=== PATIENT | female | born 1955 | race Two or more races ===

== ENCOUNTER 2023-04-06 15:51 | Emergency (ER) | payer OTHER ==
[~2023-04-06] VITALS: Ht 152.4 cm; Wt 81.6 kg
[~2023-04-06 15:51] MED LIST: ASA81 MG
[2023-04-06] MEDS ORDERED: PEPCID AC20 MG PO (21:16)
[2023-04-06] MEDS ORDERED: ANTIVERT25 M2 PO (21:16)
== END 2023-04-06 21:30 | disposition home or self-care (01) ==
LOC: ER 15:51
DX: R42 Dizziness and giddiness (principal); J45.909 Unspecified asthma, uncomplicated; K59.00 Constipation, unspecified; Z20.822 Contact with and (suspected) exposure to COVID-19